=== PATIENT | female | born 1980 | race Caucasian/White ===

== ENCOUNTER 2017-05-09 09:41 | Emergency (ER) | payer SELFPAY ==
[~2017-05-09] VITALS: Ht 167.6 cm; Wt 108.9 kg
[2017-05-09 09:45] VITALS: BP 140/94
[2017-05-09] MEDS ORDERED: METOPROLOL (09:58)
== END 2017-05-09 11:21 | disposition left against medical advice (07) ==
LOC: ER 09:44
DX: K08.89 Other specified disorders of teeth and supporting structures (principal); F17.200 Nicotine dependence, unspecified, uncomplicated
CPT/HCPCS: 99282

== ENCOUNTER 2017-07-12 11:45 | Emergency (ER) | payer MEDICAID, OTHER ==
[~2017-07-12] VITALS: Ht 167.6 cm; Wt 104.3 kg
[~2017-07-12 11:45] MED LIST: METOPROLOL
--- NOTE | 2017-07-12 12:10 | ED Integumentary General ---
General Chief Complaint: Skin/Wound Problems Stated Complaint: STOMACH PAIN,POSS ABSCESS ON STOMACH Nursing Triage Note: ARRIVED VIA AMB TO ROOM 05 BY RAISA. PT STATES SHE HAS HAD SHINGLES LAST MONTH THAT WAS TREATED BUT NOW HAS BURNING RIGHT CHEST WALL WITH NO RASH. ALSO STATES SHE HAS A ABSCESS UNDER RIGHT BREAST. Source: patient Exam Limitations: no limitations History of Present Illness Date Seen by Provider: Jul 12, 2017 Time Seen by Provider: 12:05 Initial Comments ER with reports of right chest wall burning sensation that he the bump beneath the right breast. About 1 month ago patient was treated for shingles to the right lateral chest wall. He states that she received 2 courses of Valtrex and the rash ultimately went away. The pain also went away. This morning she notices herself to be very tender and sensitive over the right chest wall in the same region the shingles were. However, she does not have a rash. She does have a bump beneath the right breast which occasionally drains and has been present for a long time. She has a history of hidradenitis suppurativa Timing/Duration: this morning Severity: moderate Associated Symptoms: No fever Allergies and Home Medications Allergies Coded Allergies: Penicillins (Verified Allergy, Unknown, 05/09/17) cyclobenzaprine (Verified Allergy, Unknown, 05/09/17) ketorolac (Verified Allergy, Unknown, 05/09/17) latex (Verified Allergy, Unknown, 05/09/17) naproxen (Verified Allergy, Unknown, 05/09/17) Constitutional: see HPI, No chills, No fever EENTM: see HPI Respiratory: no symptoms reported Cardiovascular: no symptoms reported Genitourinary: no symptoms reported Musculoskeletal: see HPI Skin: see HPI Psychiatric/Neurological: No Symptoms Reported Endocrine: No Symptoms Reported Past Sbpmxki-Mkldzb-Bgdpcw Hx Patient Social History Alcohol Use: Denies Use Recreational Drug Use: No Smoking Status: Current Everyday Smoker Recent Foreign Travel: No Contact w/Someone Who Travel: No Recent Infectious Disease Expo: No Surgeries History of Surgeries: Yes Surgeries: Tonsillectomy Neurological History of Neurological Disord: No Genitourinary History of Genitourinary Disor: No Gastrointestinal History of Gastrointestinal Di: No Musculoskeletal History of Musculoskeletal Dis: No Endocrine History of Endocrine Disorders: No HEENT History of HEENT Disorders: No Cancer History of Cancer: No Psychosocial History of Psychiatric Problem: No Integumentary History of Skin or Integumenta: Yes (HYDRADENITIS SUPPRATIVA) Physical Exam Vital Signs Vital Signs - First Documented 07/12/17 11:45 Temp 98.0 Pulse 105 Resp 18 B/P (MAP) 141/103 (116) Pulse Ox 98 Capillary Refill : Less Than 3 Seconds General Appearance: WD/WN, no apparent distress HEENT: PERRL/EOMI, normal ENT inspection Neck: non-tender, full range of motion Cardiovascular: normal peripheral pulses, no murmur Respiratory: normal breath sounds, no respiratory distress, no accessory muscle use Gastrointestinal: normal bowel sounds, non tender Neurologic/Psychiatric: alert, normal mood/affect, oriented x 3 Skin: normal color, warm/dry Skin Problem Character: abscess, other (there is a 1 cm abscess to the medial aspect of the fold beneath the right breast. Her right chest wall is sensitive to touch but there is no rash or suggestion of shingles at this time.) I&D : Blade Size: 11 Progress Lesion beneath the right breast was cleaned with alcohol swab, anesthetized with 0.75 mL of 2% lidocaine without epinephrine. Small incision was made with an 11 blade scalpel. Purulent material was expressed. Culture collected and sent to lab. Covered with gauze. Progress/Results/Core Measures Results/Orders Vital Signs/I&O Vital Sign - Last 12Hours 07/12/17 11:45 Temp 98.0 Pulse 105 Resp 18 B/P (MAP) 141/103 (116) Pulse Ox 98 Blood Pressure Mean: 116 Departure Communication (Admissions) Progress Notes I will place the patient on Bactrim for the abscess, hydrocodone for pain, we will restart Valtrex as this hypersensitivity of the right chest wall may be followed by development of herpes zoster rash. Patient normally uses a pharmacy in [facility] but does not believe them to be open today she would like me to send her antibiotics and Valtrex to the [facility] pharmacy across the street from the hospital. Impression Impression: Primary Impression: Abscess Additional Impression: chest wall hyperesthesia Disposition: 01 HOME, SELF-CARE Condition: Stable Departure-Patient Inst. Decision time for Depature: 12:09 Referrals: GAIL KEMP PACKAGE CAR DRIVER (PCP/Family) Primary Care Physician Patient Instructions: Abscess Incision and Drainage (DC) Add. Discharge Instructions: 1. Allow the abscess to drain. Keep it covered with gauze to collect the drainage. Return to ER for any worsening pain or fevers. Take the Valtrex as directed for the chest wall sensitivity as the sensitivity sometimes makes in appearance a few days before the rash does and this may indicate a recurrence of the shingles. Take the antibiotics as directed for the abscess. All discharge instructions reviewed with patient and/or family. Voiced understanding. Scripts Valacyclovir HCl (Valtrex) 1,000 Mg Tablet 1000 MG PO TID, #21 TAB Prov: RAISA ARROYO APRN 07/12/17 Hydrocodone/Acetaminophen (Aline 5-325 Tablet) 1 Each Tablet 1 EACH PO Q4H Y for PAIN-SEVERE, #10 TAB Do not fill unless Valtrex and Bactrim are also filled Prov: RAISA ARROYO APRN 07/12/17 Sulfamethoxazole/Trimethoprim (Bactrim Ds Tablet) 1 Each Tablet 1 EACH PO BID, #14 TAB Prov: RAISA ARROYO APRN 07/12/17 RAISA ARROYO APRN Jul 12, 2017 12:10
[2017-07-12] MEDS ORDERED: VALA10004 PO (12:11)
[2017-07-12] MEDS ORDERED: SULF1TAB35 PO (12:11)
[2017-07-12] MEDS ORDERED: HYDR-757 PO (12:11)
[2017-07-12 12:21] VITALS: BP 141/103
[2017-07-12] MEDS ORDERED: FLUC150T PO (12:24)
== END 2017-07-12 12:21 | disposition home or self-care (01) ==
LOC: EDUNIT# 11:45 → ER 11:47
DX: R20.3 Hyperesthesia (principal); N61.1 Abscess of the breast and nipple; F17.200 Nicotine dependence, unspecified, uncomplicated; Z88.0 Allergy status to penicillin; Z91.040 Latex allergy status; Z88.8 Allergy status to other drugs, medicaments and biological substances; Z88.6 Allergy status to analgesic agent
CPT/HCPCS: 10060; 87070; 87205

== ENCOUNTER 2017-08-16 16:16 | Emergency (ER) | payer MEDICAID ==
[~2017-08-16] VITALS: Ht 167.6 cm; Wt 104.3 kg
[~2017-08-16 16:16] MED LIST changes: +FLUC150T PO; +HYDR-757 PO; +SULF1TAB35 PO; +VALA10004 PO
[2017-08-16] MEDS ORDERED: HYDR-3812 PO (17:15)
[2017-08-16] MEDS ORDERED: GABA-488 PO (17:15)
[2017-08-16] MEDS ORDERED: LIDOCAINE 2% VISCOUS 15 ML UDC PO ONE ×2 (17:15)
--- NOTE | 2017-08-16 17:18 | ED General ---
General Chief Complaint: Skin/Wound Problems Stated Complaint: STOMACH PAIN/REDNESS Nursing Triage Note: patient reports a 'tumor' on her chest and R breast that is to be surgically removed on Friday in [place], [place]. patient reports is in town visiting [facility] and the 'area' began to get puffy and have drainage today Nursing Sepsis Screen: No Definite Risk Source of Information: Patient, Old Records Exam Limitations: No Limitations History of Present Illness Date Seen by Provider: Aug 16, 2017 Time Seen by Provider: 16:34 Initial Comments This 36-year-old woman who presents to the emergency room with complaints of pain and skin rash at the medial left breast. She has been struggling with recurrent problems in this area for 3 months. This was originally thought to be abscess and infection. However, she has been on antibiotics including Bactrim and clindamycin without resolution. Pain became severely exacerbated about 3 days ago. She then developed a vesicular rash followed by an open sore in this area with some lightly purulent drainage. The area is exquisitely tender even to light touch. Patient is scheduled to have surgery for excision of this tissue on Friday. She has a history of hidradenitis suppurativa requiring surgery in the bilateral axilla. At one point it was thought that the rash in this area could be shingles and she was treated with acyclovir. She reports stopping the acyclovir after only a few days and she is therefore uncertain if the acyclovir helped. Allergies and Home Medications Allergies Coded Allergies: Penicillins (Verified Allergy, Unknown, 05/09/17) cyclobenzaprine (Verified Allergy, Unknown, 05/09/17) ketorolac (Verified Allergy, Unknown, 05/09/17) latex (Verified Allergy, Unknown, 05/09/17) naproxen (Verified Allergy, Unknown, 05/09/17) Home Medications Fluconazole 150 Mg Tablet, 150 MG PO DAILY Prescribed by: RAISA ARROYO on 07/12/17 1224 Gabapentin 300 Mg Capsule, 300 MG PO TID PRN for PAIN-MODERATE TO SEVERE Prescribed by: LYNDSEY HELMS on 08/16/17 1715 Hydrocodone/Acetaminophen 1 Each Tablet, 1 EACH PO Q4H PRN for PAIN-SEVERE Do not fill unless Valtrex and Bactrim are also filled Prescribed by: RAISA ARROYO on 07/12/17 1211 Hydrocodone/Acetaminophen 1 Each Tablet, 1 EACH PO Q4H PRN for PAIN-MODERATE TO SEVERE Prescribed by: LYNDSEY HELMS on 08/16/17 1715 Sulfamethoxazole/Trimethoprim 1 Each Tablet, 1 EACH PO BID Prescribed by: RAISA ARROYO on 07/12/17 1211 Valacyclovir HCl 1,000 Mg Tablet, 1,000 MG PO TID Prescribed by: RAISA ARROYO on 07/12/17 1211 Patient Home Medication List Home Medication List Reviewed: Yes Constitutional: no symptoms reported EENTM: no symptoms reported Respiratory: no symptoms reported Cardiovascular: no symptoms reported Gastrointestinal: no symptoms reported Genitourinary: no symptoms reported Musculoskeletal: no symptoms reported Skin: see HPI Psychiatric/Neurological: No Symptoms Reported Hematologic/Lymphatic: No Symptoms Reported Immunological/Allergic: no symptoms reported Past Nddclhk-Vtqdfq-Qfqivc Hx Patient Social History Alcohol Use: Denies Use Recreational Drug Use: No Smoking Status: Current Everyday Smoker Recent Foreign Travel: No Contact w/Someone Who Travel: No Recent Infectious Disease Expo: No Surgeries History of Surgeries: Yes (surgery on the bilateral axilla for hidradenitis suppurativa) Surgeries: Adenoidectomy, Tonsillectomy Respiratory History of Respiratory Disorde: No Cardiovascular History of Cardiac Disorders: Yes Cardiac Disorders: Hypertension Neurological History of Neurological Disord: No Reproductive System : No Genitourinary History of Genitourinary Disor: No Gastrointestinal History of Gastrointestinal Di: No Musculoskeletal History of Musculoskeletal Dis: No Endocrine History of Endocrine Disorders: No HEENT History of HEENT Disorders: No Cancer History of Cancer: No Psychosocial History of Psychiatric Problem: No Integumentary History of Skin or Integumenta: Yes (HYDRADENITIS SUPPURATIVA) Physical Exam Vital Signs Vital Signs - First Documented 08/16/17 16:24 Temp 97.7 Pulse 77 Resp 18 B/P (MAP) 137/91 (106) Pulse Ox 98 Capillary Refill : Less Than 3 Seconds General Appearance: No Apparent Distress, WD/WN HEENT: PERRL/EOMI, Normal ENT Inspection Respiratory: Lungs Clear, Normal Breath Sounds Cardiovascular: Regular Rate, Rhythm, No Edema, No Murmur Extremity: Normal Inspection Neurologic/Psychiatric: Alert, Oriented x3, No Motor/Sensory Deficits, Normal 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 There is a central tiny ulcerative type lesion. There is no palpable fluid collection or mass beneath the skin.) Progress/Results/Core Measures Suspected Sepsis Recent Fever Within 48 Hours: No Infection Criteria Present: None New/Unexplained Altered Menta: No Sepsis Screen: No Definite Risk Sepsis Diagnosis: SIRS Temperature:97.7 Pulse: 77 Respiratory Rate: 18 Blood Pressure 137 /91 Mean: 106 Results/Orders My Orders Orders - LYNDSEY RESENDEZ MD Lidocaine 2% Viscous 15 Ml (Xylocaine Vi (08/16/17 17:15) Lidocaine 2% Viscous 15 Ml (Xylocaine Vi (08/16/17 17:15) Wound Culture (08/16/17 17:19) Vital Signs/I&O Capillary Refill : Less Than 3 Seconds Blood Pressure Mean: 106 Progress Note : Progress Note Patient's clinical history and exam is suggestive of shingles. I advised her to restart her acyclovir of which she has a large supply at home. I dispensed some viscous lidocaine for her to use topically and prescribed hydrocodone and gabapentin for pain. I advised her to contact her surgeon on Friday to discuss possibly delaying surgery until she can determine if treatment of shingles improves her symptoms. Culture was obtained from the drainage of the central lesion. Prior culture was reviewed which showed typical skin edil. Patient was advised to continue her antibiotics until instructed otherwise. Departure Impression Impression: Primary Impression: Skin rash Disposition: 01 HOME, SELF-CARE Condition: Improved Departure-Patient Inst. Decision time for Depature: 17:13 Referrals: GAIL KEMP SCRAP COLLECTOR (PCP/Family) Primary Care Physician Patient Instructions: Shingles Add. Discharge Instructions: Resume acyclovir today. Continue with Bactrim DS and clindamycin as previously prescribed. You may use the lidocaine jelly provided in the ER by placing a thin layer over the affected areas every couple of hours as needed. First-line therapy for your pain should be the lidocaine jelly and over-the- counter Tylenol (acetaminophen) and/or ibuprofen. For pain not controlled by these medications, you may use gabapentin and/or hydrocodone as prescribed. Please be aware of these medications may make you drowsy. Do not drive, operate machinery, or make important decisions while on these medications. Contact your surgeon Friday morning to discuss your status. You may wish to delay surgery until progress on acyclovir can be monitored. A culture was obtained from your wound. Please follow-up on the culture in 2 or 3 days by contacting your primary care provider or surgeon. Return to the emergency room if symptoms are worsening. All discharge instructions reviewed with patient and/or family. Voiced understanding. Scripts Gabapentin (Gabapentin) 300 Mg Capsule 300 MG PO TID Y for PAIN-MODERATE TO SEVERE, #20 CAP Prov: LYNDSEY RESENDEZ MD 08/16/17 Hydrocodone/Acetaminophen (Hydrocodone-Acetamin 5-325 mg) 1 Each Tablet 1 EACH PO Q4H Y for PAIN-MODERATE TO SEVERE, #20 TAB Prov: LYNDSEY RESENDEZ MD 08/16/17 LYNDSEY RESENDEZ MD Aug 16, 2017 17:18
[2017-08-16 17:32] VITALS: BP 137/91
== END 2017-08-16 17:32 | disposition home or self-care (01) ==
LOC: EDUNIT# 16:16 → ER 16:18
DX: R21 Rash and other nonspecific skin eruption (principal); I10 Essential (primary) hypertension; F17.200 Nicotine dependence, unspecified, uncomplicated; Z90.89 Acquired absence of other organs; Z88.0 Allergy status to penicillin; Z88.1 Allergy status to other antibiotic agents; Z88.6 Allergy status to analgesic agent; Z91.040 Latex allergy status
CPT/HCPCS: 87070; 87205; 99283

== ENCOUNTER 2017-09-30 10:55 | Emergency (ER) | payer MEDICAID ==
[~2017-09-30] VITALS: Ht 167.6 cm; Wt 104.3 kg
[~2017-09-30 10:55] MED LIST changes: +GABA-488 PO; +HYDR-3812 PO
[2017-09-30] MEDS ORDERED: TRAM50TA2 (11:32)
[2017-09-30] MEDS ORDERED: METO50TA15 (11:32)
--- NOTE | 2017-09-30 12:01 | ED Integumentary General ---
General Chief Complaint: Skin/Wound Problems Stated Complaint: POST OP WOUND POSS INF RT BREAST Nursing Triage Note: ARRIVED VIA AMBULATORY TO ROOM 09 WITHOUT DIFFICULTY. STATES SHE HAD A TUMOR REMOVED FROM RIGHT BREAST ON August. STATES IT IS HEALING BECAUSE IT IS NOT DEEP BUT IT HAS A ODOR AND NOW IS HAVING GREEN DRAINAGE AND IT WAS YELLOW. Source: patient Exam Limitations: no limitations History of Present Illness Date Seen by Provider: September 30, 2017 Time Seen by Provider: 12:40 Initial Comments 36 YO FEMALE PATIENT PRESENTS TO THE ED WITH C/O PAIN AROUND THE RT BREAST EXCISIONAL BX SITE. PATIENT REPORTS HAVING A BENIGN TUMOR REMOVED FROM THE RT BREAST ON August AND WAS HEALING NICELY UNTIL YESTERDAY. YESTERDAY THE PATIENT NOTICED AN ODOR AND GREEN-YELLOWISH DISCHARGE TODAY. DENIES FEVER OR CHILLS. PATIENT REPORTS HAVING AN APPOINTMENT WITH HER SURGEON ON FRIDAY. Timing/Duration: yesterday, getting worse Modifying Factors: worse with other (WORSE WITH PALPATION) Allergies and Home Medications Allergies Coded Allergies: Penicillins (Verified Allergy, Unknown, 05/09/17) cyclobenzaprine (Verified Allergy, Unknown, 05/09/17) ketorolac (Verified Allergy, Unknown, 05/09/17) latex (Verified Allergy, Unknown, 05/09/17) naproxen (Verified Allergy, Unknown, 05/09/17) Home Medications Sulfamethoxazole/Trimethoprim 1 Each Tablet, 1 EACH PO BID Prescribed by: JOSE ANDRES on 09/30/17 4658 Patient Home Medication List Home Medication List Reviewed: Yes Constitutional: chills; No fever, No malaise Respiratory: no symptoms reported Cardiovascular: no symptoms reported Gastrointestinal: no symptoms reported Musculoskeletal: no symptoms reported Skin: see HPI Psychiatric/Neurological: No Symptoms Reported All Other Systems Reviewed Negative Unless Noted: Yes (Negative excepted noted.) Past Mnnxmax-Pywowj-Nmlqge Hx Patient Social History Alcohol Use: Denies Use Recreational Drug Use: No Smoking Status: Current Everyday Smoker Recent Foreign Travel: No Contact w/Someone Who Travel: No Recent Infectious Disease Expo: No Past Medical History Surgeries: Yes (surgery on the bilateral axilla for hidradenitis suppurativa. ) Adenoidectomy, Breast (EXCISIONAL BX OF THE RT BREAST ON 09/04/17), Tonsillectomy Respiratory: No Cardiac: Yes Hypertension Neurological: No Genitourinary: No Gastrointestinal: No Musculoskeletal: No Endocrine: No HEENT: No Cancer: No Psychosocial: No Integumentary: Yes (HYDRADENITIS SUPPURATIVA) Family Medical History Reviewed Nursing Family Hx No Pertinent Family Hx Physical Exam Vital Signs Vital Signs - First Documented 09/30/17 11:10 Temp 99.1 Pulse 96 Resp 18 B/P (MAP) 135/93 (107) Pulse Ox 97 O2 Delivery Room Air Capillary Refill : Less Than 3 Seconds General Appearance: WD/WN, no apparent distress HEENT: PERRL/EOMI, pharynx normal Neck: supple, normal inspection Cardiovascular: normal peripheral pulses, regular rate, rhythm, no edema, no murmur Respiratory: lungs clear, normal breath sounds, no respiratory distress, no accessory muscle use Extremities: no pedal edema, no calf tenderness, normal capillary refill Neurologic/Psychiatric: alert, normal mood/affect, oriented x 3 Skin: normal color, warm/dry, other (2.5X3 CM WOUND OF THE LEFT MEDIAL INFERIOR BREAST WITH GRANULATION OF THE WOUND BED. NO EVIDENCE OF ERYTHEMA, WARMTH, ESCHAR, OR ACTIVE DRAINAGE NOTED. GREENISH YELLOW DRAINAGE NOTED ON THE GAUZE. CULTURE OBTAINED OF THE WOUND BED. MACULOPAPULAR RASH WITH SCATTERED SCABS CONSISTENT WITH LOCAL REACTION SECONDARY TO THE TAPE NOTED SURROUNDING THE WOUND.) Skin Problem Location: other (RIGHT BREAST) Skin Problem Character: tenderness, other (2.5X3 CM WOUND OF THE LEFT MEDIAL INFERIOR BREAST WITH GRANULATION OF THE WOUND BED. NO EVIDENCE OF ERYTHEMA, WARMTH, ESCHAR, OR ACTIVE DRAINAGE NOTED. GREENISH YELLOW DRAINAGE NOTED ON THE GAUZE. CULTURE OBTAINED OF THE WOUND BED. MACULOPAPULAR RASH WITH SCATTERED SCABS CONSISTENT WITH LOCAL REACTION SECONDARY TO THE TAPE NOTED SURROUNDING THE WOUND.) Progress/Results/Core Measures Results/Orders Lab Results Laboratory Tests Test 09/30/17 13:21 Range/Units White Blood Count 12.1 H 4.3-11.0 10^3/uL Red Blood Count 4.81 4.35-5.85 10^6/uL Hemoglobin 13.3 11.5-16.0 G/DL Hematocrit 40 35-52 % Mean Corpuscular Volume 83 80-99 FL Mean Corpuscular Hemoglobin 28 25-34 PG Mean Corpuscular Hemoglobin Concent 33 32-36 G/DL Red Cell Distribution Width 14.8 H 10.0-14.5 % Platelet Count 427 H 130-400 10^3/uL Mean Platelet Volume 9.7 7.4-10.4 FL Neutrophils (%) (Auto) 70 42-75 % Lymphocytes (%) (Auto) 20 12-44 % Monocytes (%) (Auto) 7 0-12 % Eosinophils (%) (Auto) 3 0-10 % Basophils (%) (Auto) 0 0-10 % Neutrophils # (Auto) 8.5 H 1.8-7.8 X 10^3 Lymphocytes # (Auto) 2.4 1.0-4.0 X 10^3 Monocytes # (Auto) 0.9 0.0-1.0 X 10^3 Eosinophils # (Auto) 0.3 0.0-0.3 10^3/uL Basophils # (Auto) 0.0 0.0-0.1 10^3/uL Sodium Level 139 135-145 MMOL/L Potassium Level 4.6 3.6-5.0 MMOL/L Chloride Level 110 H 98-107 MMOL/L Carbon Dioxide Level 19 L 21-32 MMOL/L Anion Gap 10 5-14 MMOL/L Blood Urea Nitrogen 8 7-18 MG/DL Creatinine 0.66 0.60-1.30 MG/DL Estimat Glomerular Filtration Rate > 60 BUN/Creatinine Ratio 12 Glucose Level 93 70-105 MG/DL Calcium Level 9.8 8.5-10.1 MG/DL Total Bilirubin 0.2 0.1-1.0 MG/DL Aspartate Amino Transf (AST/SGOT) 16 5-34 U/L Alanine Aminotransferase (ALT/SGPT) 18 0-55 U/L Alkaline Phosphatase 69 40-136 U/L C-Reactive Protein High Sensitivity 1.00 H 0.00-0.50 MG/DL Total Protein 7.7 6.4-8.2 GM/DL Albumin 4.5 3.2-4.5 GM/DL My Orders Orders - JOSE ANDRES Cbc With Automated Diff (09/30/17 13:00) Comprehensive Metabolic Panel (09/30/17 13:00) Hs C Reactive Protein (09/30/17 13:00) Saline Lock/Iv-Start (09/30/17 13:00) Ns Iv 1000 Ml (Sodium Chloride 0.9%) (09/30/17 13:00) Morphine Injection (Morphine Injection (09/30/17 13:00) Wound Culture (09/30/17 13:00) Us Breast Limited Right (09/30/17 13:00) Medications Given in ED Current Medications Medications Dose Ordered Sig/Mary Route Start Time Stop Time Status Last Admin Dose Admin Sodium Chloride 1,000 ml @ 0 mls/hr Q0M ONCE IV 09/30/17 13:00 09/30/17 13:02 DC 09/30/17 13:19 1,000 MLS/HR Vital Signs/I&O 09/30/17 09/30/17 11:10 14:14 Temp 99.1 Pulse 96 77 Resp 18 18 B/P (MAP) 135/93 (107) 127/105 Pulse Ox 97 98 O2 Delivery Room Air Blood Pressure Mean: 107 Diagnostic Imaging Diagonstic Imaging: Ultrasound Plain Films/CT/US/NM/MRI: other (RT BREAST) Comments US BREAST LIMITED RIGHT INDICATION: A recent right breast lump removal with new soreness and lump at the area of prior surgery. Sonographic interrogation of the right breast 4 o'clock location was performed. No focal fluid collection or mass is detected. No sonographic abnormalities detected. IMPRESSION: BI-RADS 2 No sonographic abnormalities detected. Continued close clinical and self breast exam is recommended. If symptoms persist, diagnostic mammography may be indicated. ACR BI-RADS Category 2: Benign findings. Dictated on workstation # [id number] Reviewed: Reviewed by Me (RADIOLOGY REPORT REVIEWED BY ME) Departure Communication (Admissions) Laboratory and diagnostic findings discussed with the patient. Plan for discharge to home with follow-up as an outpatient with her surgeon this week as previously scheduled. Patient to continue using the tramadol for pain. Impression Primary Impression: Cellulitis of female breast Additional Impression: S/P breast biopsy, right Disposition: 01 HOME, SELF-CARE Condition: Improved Departure-Patient Inst. Decision time for Depature: 13:53 Referrals: NO,LOCAL PHYSICIAN (PCP/Family) Primary Care Physician Patient Instructions: Cellulitis (Skin Infection), Adult (DC) Add. Discharge Instructions: All discharge instructions reviewed with patient and/or family. Voiced understanding. MEDICATIONS DIRECTED. SHOWER WITH ANTIBACTERIAL SOAP. YOU MAY USE ICE PACKS OR WARM PACKS NEEDED FOR SYMPTOMS. WEAR A SPORTS BRA TO HOLD GAUZE IN PLACE. AVOID TAPING THE SKIN MUCH POSSIBLE. FOLLOW-UP WITH YOUR SURGEON THIS WEEK PREVIOUSLY SCHEDULED. RETURN TO THE EMERGENCY DEPARTMENT FOR WORSENED SYMPTOMS OR ANY OTHER CONCERNS. Scripts Sulfamethoxazole/Trimethoprim (Bactrim Ds Tablet) 1 Each Tablet 1 EACH PO BID, #14 TAB 0 Refills Prov: JOSE ANDRES 09/30/17 JOSE ANDRES September 30, 2017 12:01
[2017-09-30] MEDS ORDERED: morphine INJ 10 MG/ML 1ML (SYR OR VIAL) IVP STA (13:00)
[2017-09-30] MEDS ORDERED: NS IV 1000 ML 1,000 ML IV ONE (13:00)
[2017-09-30 13:26] LABS: BASOPHILS % (AUTO) 0 % (0-10); EOSINOPHILS # (AUTO) 0.3 10^3/uL (0.0-0.3); EOSINOPHILS % (AUTO) 3 % (0-10); HEMATOCRIT 40 % (35-52); HEMOGLOBIN 13.3 G/DL (11.5-16.0); LYMPHOCYTES # (AUTO) 2.4 X 10^3 (1.0-4.0); LYMPHOCYTES % (AUTO) 20 % (12-44); MEAN CORPUSCULAR HEMOGLOBIN 28 PG (25-34); MEAN CORPUSCULAR HGB CONC 33 G/DL (32-36); MEAN CORPUSCULAR VOLUME 83 FL (80-99); MEAN PLATELET VOLUME 9.7 FL (7.4-10.4); MONOCYTES # (AUTO) 0.9 X 10^3 (0.0-1.0); MONOCYTES % (AUTO) 7 % (0-12); NEUTROPHILS # (AUTO) 8.5 X 10^3 (1.8-7.8); NEUTROPHILS % (AUTO) 70 % (42-75); PLATELET COUNT 427 10^3/uL (130-400); RED BLOOD COUNT 4.81 10^6/uL (4.35-5.85); RED CELL DISTRIBUTION WIDTH 14.8 % (10.0-14.5); WHITE BLOOD COUNT 12.1 10^3/uL (4.3-11.0)
[2017-09-30 13:47] LABS: ALANINE AMINOTRANSFERASE 18 U/L (0-55); ALBUMIN 4.5 GM/DL (3.2-4.5); ALKALINE PHOSPHATASE 69 U/L (40-136); BILIRUBIN,TOTAL 0.2 MG/DL (0.1-1.0); BUN/CREATININE RATIO 12; CALCIUM 9.8 MG/DL (8.5-10.1); CARBON DIOXIDE 19 MMOL/L (21-32); CHLORIDE 110 MMOL/L (98-107); CREATININE SERUM 0.66 MG/DL (0.60-1.30); GFR ESTIMATED > 60; GLUCOSE 93 MG/DL (70-105); POTASSIUM 4.6 MMOL/L (3.6-5.0); SODIUM 139 MMOL/L (135-145); TOTAL PROTEIN 7.7 GM/DL (6.4-8.2)
--- NOTE | 2017-09-30 13:47 | Diagnostic Imaging Report ---
INDICATION: A recent right breast lump removal with new soreness and lump at the area of prior surgery. Sonographic interrogation of the right breast 4 o'clock location was performed. No focal fluid collection or mass is detected. No sonographic abnormalities detected. IMPRESSION: BI-RADS 2 No sonographic abnormalities detected. Continued close clinical and self breast exam is recommended. If symptoms persist, diagnostic mammography may be indicated. ACR BI-RADS Category 2: Benign findings. Dictated by: Dictated on workstation # [id number]
[2017-09-30] MEDS ORDERED: SULF1TAB35 PO (13:57)
[2017-09-30 14:14] VITALS: BP 127/105
== END 2017-09-30 14:14 | disposition home or self-care (01) ==
LOC: EDUNIT# 10:55 → ER 10:59
DX: N61.0 Mastitis without abscess (principal); I10 Essential (primary) hypertension; F17.200 Nicotine dependence, unspecified, uncomplicated; Z90.89 Acquired absence of other organs; Z88.0 Allergy status to penicillin; Z88.8 Allergy status to other drugs, medicaments and biological substances; Z98.890 Other specified postprocedural states
CPT/HCPCS: 36415; 80053; 85025; 86141; 87070; 87077; 87186; 87205; 96374

== ENCOUNTER 2017-12-13 19:35 | Emergency (ER) | payer MEDICAID ==
[~2017-12-13] VITALS: Ht 167.6 cm; Wt 104.3 kg
[~2017-12-13 19:35] MED LIST changes: +METO50TA15; +TRAM50TA2
--- NOTE | 2017-12-13 20:24 | ED Integumentary General ---
General Chief Complaint: Skin/Wound Problems Stated Complaint: RASH ON R SIDE OF BODY Nursing Triage Note: PT PRESENTS TO ER WITH COMPLAINT OF RASH THAT STARTS UNDER RIGHT BREAST AND GOES AROUND HER SIDE TO HER MEDIAL BACK. DOES NOT HAVE RASH OF LEFT SIDE. Source: patient Exam Limitations: no limitations History of Present Illness Date Seen by Provider: Dec 13, 2017 Time Seen by Provider: 20:22 Initial Comments to ER with reports of a rash. This began yesterday and is on the right side of the thorax. It began very itchy and is now very painful. She's never had this before. She did have chickenpox as a child. The rash does not cross midline. She was unable to shower today because the hot water hitting it was excruciating pain. She could not wear her brought to the ER because even light touch of the skin was very painful. Timing/Duration: yesterday Severity: moderate Associated Symptoms: rash Allergies and Home Medications Allergies Coded Allergies: Penicillins (Verified Allergy, Unknown, 05/09/17) cyclobenzaprine (Verified Allergy, Unknown, 05/09/17) ketorolac (Verified Allergy, Unknown, 05/09/17) latex (Verified Allergy, Unknown, 05/09/17) naproxen (Verified Allergy, Unknown, 05/09/17) Home Medications Sulfamethoxazole/Trimethoprim 1 Each Tablet, 1 EACH PO BID Prescribed by: JOSE ANDRES on 09/30/17 6553 Patient Home Medication List Home Medication List Reviewed: Yes Constitutional: see HPI; No chills, No fever EENTM: see HPI Respiratory: no symptoms reported Cardiovascular: no symptoms reported Genitourinary: no symptoms reported Musculoskeletal: no symptoms reported Skin: see HPI, rash Psychiatric/Neurological: No Symptoms Reported Past Sehzkvj-Anlvci-Ygqfog Hx Patient Social History Alcohol Use: Denies Use Recreational Drug Use: No Smoking Status: Current Everyday Smoker Recent Foreign Travel: No Contact w/Someone Who Travel: No Recent Infectious Disease Expo: No Immunizations Up To Date Tetanus Booster (TDap): Unknown PED Vaccines UTD: Yes Past Medical History Surgeries: Yes (surgery on the bilateral axilla for hidradenitis suppurativa. ) Adenoidectomy, Breast, Tonsillectomy Respiratory: No Cardiac: Yes Hypertension Neurological: No Genitourinary: No Gastrointestinal: No Musculoskeletal: No Endocrine: No HEENT: No Cancer: No Psychosocial: No Integumentary: Yes (HYDRADENITIS SUPPURATIVA) Family Medical History No Pertinent Family Hx Physical Exam Vital Signs Vital Signs - First Documented 12/13/17 20:00 Temp 98.0 Pulse 88 Resp 20 B/P (MAP) 132/76 (94) Pulse Ox 97 O2 Delivery Room Air Capillary Refill : Less Than 3 Seconds General Appearance: WD/WN, no apparent distress HEENT: PERRL/EOMI, normal ENT inspection Neck: non-tender, full range of motion Respiratory: no respiratory distress, no accessory muscle use Gastrointestinal: normal bowel sounds, non tender Neurologic/Psychiatric: alert, normal mood/affect, oriented x 3 Skin: normal color, warm/dry, other (there is an erythematous fine papular rash to the lateral and anterior aspect of the right side of the thorax. To the posterior right side of the thorax there are clusters of vesicles that are erythematous. This is consistent with herpes zoster rash. No evidence of secondary bacterial infection with cellulitis. Vesicles remain unruptured.) Skin Problem Character: other (the rash does not cross midline anteriorly or posteriorly. It terminates at the midline.) Progress/Results/Core Measures Results/Orders My Orders Orders - RAISA ARROYO APRN Rx-Hydrocodone/Apap 5-325 Mg (Rx-Vicodin (12/13/17 20:30) Acyclovir Capsule/Tablet (Zovirax Caps (12/13/17 21:00) Vital Signs/I&O 12/13/17 20:00 Temp 98.0 Pulse 88 Resp 20 B/P (MAP) 132/76 (94) Pulse Ox 97 O2 Delivery Room Air Blood Pressure Mean: 94 Departure Impression Primary Impression: Herpes zoster Disposition: 01 HOME, SELF-CARE Condition: Stable Departure-Patient Inst. Decision time for Depature: 20:25 Referrals: NO,LOCAL PHYSICIAN (PCP/Family) Primary Care Physician Patient Instructions: Shingles Add. Discharge Instructions: 1. There is no cream that is particularly helpful but if you want to use a cream , try calamine lotion. 2. Steroids pain medication and antivirals as directed. Do not take the Ultram while you're taking the hydrocodone. Take one or the other. Follow-up with your doctor next week for recheck. Return to ER for any concerns. Expect this to get worse before it gets better.All discharge instructions reviewed with patient and /or family. Voiced understanding. Scripts Acyclovir (Acyclovir) 800 Mg Tablet 800 MG PO 5XD, #35 TAB Prov: RAISA ARROYO APRN 12/13/17 Hydrocodone/Acetaminophen ([place] 5-325 Tablet) 1 Each Tablet 1-2 EACH PO Q6H PRN for PAIN-MODERATE TO SEVERE, #20 TAB Prov: RAISA ARROYO APRN 12/13/17 Prednisone (Prednisone) 10 Mg Tab 10 MG PO UD, #30 EA 60 mg daily for 3 days then reduce by one tablet daily until gone Prov: RAISA ARROYO APRN 12/13/17 RAISA ARROYO APRN Dec 13, 2017 20:24
[2017-12-13] MEDS ORDERED: HYDR-757 PO (20:30)
[2017-12-13] MEDS ORDERED: RX-HYDROCODONE/APAP 5/325 MG #4 TAB PK PO PRN (20:30)
[2017-12-13] MEDS ORDERED: ACYC800T PO (20:30)
[2017-12-13] MEDS ORDERED: PRD10T PO (20:30)
[2017-12-13 20:45] VITALS: BP 132/76
[2017-12-13] MEDS ORDERED: ACYCLOVIR 400 MG TABLET (ZOVIRAX) PO SCH (21:00)
== END 2017-12-13 20:45 | disposition home or self-care (01) ==
LOC: EDUNIT# 19:35 → ER 19:37
DX: B02.9 Zoster without complications (principal); I10 Essential (primary) hypertension; F17.200 Nicotine dependence, unspecified, uncomplicated; Z90.89 Acquired absence of other organs; Z88.0 Allergy status to penicillin; Z88.4 Allergy status to anesthetic agent; Z88.8 Allergy status to other drugs, medicaments and biological substances; Z91.040 Latex allergy status
CPT/HCPCS: 99283

== ENCOUNTER 2018-03-30 18:04 | Emergency (ER) | payer SELFPAY ==
[~2018-03-30] VITALS: Ht 167.6 cm; Wt 105.2 kg
[~2018-03-30 18:04] MED LIST changes: +ACYC800T PO; +HYDR-4226 PO; -HYDR-757 PO; +PRD10T PO
[2018-03-30] MEDS ORDERED: RX-HYDROCODONE/APAP 5/325 MG #4 TAB PK PO PRN (19:00)
[2018-03-30] MEDS ORDERED: HYDR-4226 PO (19:07)
--- NOTE | 2018-03-30 19:08 | ED Lower Extremity ---
General Chief Complaint: Lower Extremity Stated Complaint: FALL/L CALF PAIN Nursing Triage Note: left calf pain s/p fall Nursing Sepsis Screen: No Definite Risk Source: patient Exam Limitations: no limitations History of Present Illness Date Seen by Provider: Mar 30, 2018 Time Seen by Provider: 19:02 Initial Comments To ER per private vehicle with reports of left calf pain after a fall earlier today. She slipped on the ice felt a popping sensation in the posterior left calf and now has swelling and tenderness to this. The pain in the calf is much worse with plantar flexion of the foot. She is able to bear weight just fine however his long she doesn't plantar flex her foot. Onset: just prior to arrival Severity: moderate Pain/Injury Location: left other Modifying Factors: Worse With Movement Allergies and Home Medications Allergies Coded Allergies: Penicillins (Verified Allergy, Unknown, 05/09/17) cyclobenzaprine (Verified Allergy, Unknown, 05/09/17) ketorolac (Verified Allergy, Unknown, 05/09/17) latex (Verified Allergy, Unknown, 05/09/17) naproxen (Verified Allergy, Unknown, 05/09/17) Patient Home Medication List Home Medication List Reviewed: Yes Review of Systems Constitutional: see HPI EENTM: see HPI Respiratory: no symptoms reported Cardiovascular: no symptoms reported Genitourinary: no symptoms reported Musculoskeletal: see HPI Skin: no symptoms reported Psychiatric/Neurological: No Symptoms Reported Past Rfkxsja-Zdkefm-Mumrqv Hx Patient Social History Alcohol Use: Denies Use Recreational Drug Use: No Smoking Status: Current Someday Smoker Type Used: Cigarettes 2nd Hand Smoke Exposure: Yes Recent Foreign Travel: No Contact w/Someone Who Travel: No Recent Infectious Disease Expo: No Recent Hopitalizations: No Immunizations Up To Date Tetanus Booster (TDap): Unknown PED Vaccines UTD: Yes Seasonal Allergies Seasonal Allergies: No Past Medical History Surgeries: Yes (surgery on the bilateral axilla for hidradenitis suppurativa. ) Adenoidectomy, Breast, Tonsillectomy Respiratory: No Cardiac: Yes Hypertension Neurological: No : No Last Menstrual Period: Mar 06, 2018 Genitourinary: No Gastrointestinal: No Musculoskeletal: No Endocrine: No HEENT: No Cancer: No Psychosocial: No Integumentary: Yes (HYDRADENITIS SUPPURATIVA) Blood Disorders: No Family Medical History No Pertinent Family Hx Physical Exam Vital Signs Capillary Refill : Less Than 3 Seconds Height, Weight, BMI Height: 5'6.00" Weight: 232lbs. oz. 105.002419ak; BMI Method:Stated General Appearance: WD/WN, no apparent distress Respiratory: no respiratory distress, no accessory muscle use Gastrointestinal: soft Hips: bilateral hip non-tender, bilateral hip normal inspection Legs: left leg other (there is swelling to the mid left calf. There is no ecchymosis at this time but I suspect there will be later. When pain her foot off the bed I am able to squeeze the calf and this does result in plantar flexion of the foot. The Achilles tendon is intact and nontender.) Knees: bilateral knee non-tender, bilateral knee normal inspection, bilateral knee normal range of motion Ankles: bilateral ankle non-tender, bilateral ankle normal inspection, bilateral ankle normal range of motion Feet: bilateral foot non-tender, bilateral foot normal inspection, bilateral foot normal range of motion Neurologic/Psychiatric: alert, normal mood/affect, oriented x 3 Skin: normal color, warm/dry Strong dorsalis pedis pulses bilaterally Progress/Results/Core Measures Results/Orders My Orders Orders - RAISA ARROYO APRN Rx-Hydrocodone/Apap 5-325 Mg (Rx-Vicodin (03/30/18 19:00) Blood Pressure Mean: 99 Departure Communication (Admissions) We'll provide her with an Lionel wrap for the calf, a walking boot to prevent plantar or dorsiflexion of the foot. She has no pain with weightbearing, only with dorsiflexion and plantar flexion of the foot. Impression Primary Impression: Gastrocnemius tear Qualified Codes: S86.112A - Strain of other muscle(s) and tendon(s) of posterior muscle group at lower leg level, left leg, initial encounter Disposition: HOME, SELF-CARE Condition: Stable Departure-Patient Inst. Decision time for Depature: 19:05 Referrals: NO,LOCAL PHYSICIAN (PCP/Family) Primary Care Physician Patient Instructions: Lower Extremity Muscle Strain Add. Discharge Instructions: 1. Go home and put an ice pack on the back of your at one hour intervals for the next 2-3 days. Take pain medication as directed. You may add ibuprofen to this prescribed pain medication. Wear the walking boot when you are up and about for about 2 weeks. You can take it off when at rest and not walking. Wear the Lionel wrap around the calf for the next week. You may take off to shower. Follow-up with your doctor within 1-2 weeks for recheck. Elevate this leg as much as possible for the next 1-2 days. All discharge instructions reviewed with patient and/or family. Voiced understanding. Scripts Hydrocodone/Acetaminophen ([place] 5-325 Tablet) 1 Each Tablet 1 EACH PO Q6H PRN for PAIN-MODERATE MDD 10, #14 TAB Prov: RAISA ARROYO APRN 03/30/18 RAISA ARROYO APRN Mar 30, 2018 19:08
[2018-03-30 19:13] VITALS: BP 114/92
== END 2018-03-30 19:13 | disposition home or self-care (01) ==
LOC: EDUNIT# 18:04 → ER 18:05
DX: S86.112A Strain of other muscle(s) and tendon(s) of posterior muscle group at lower leg level, left leg, initial encounter (principal); I10 Essential (primary) hypertension; F17.210 Nicotine dependence, cigarettes, uncomplicated; Z88.0 Allergy status to penicillin; Z90.89 Acquired absence of other organs; Z88.1 Allergy status to other antibiotic agents; Z88.4 Allergy status to anesthetic agent; Z91.040 Latex allergy status; Z88.8 Allergy status to other drugs, medicaments and biological substances; X50.0XXA Overexertion from strenuous movement or load, initial encounter
CPT/HCPCS: 99283

== ENCOUNTER 2018-04-13 14:26 | Emergency (ER) | payer SELFPAY ==
[~2018-04-13] VITALS: Ht 167.6 cm; Wt 105.2 kg
[2018-04-13] MEDS ORDERED: PRD20T PO (15:00)
[2018-04-13] MEDS ORDERED: TRAM-42 PO (15:00)
--- NOTE | 2018-04-13 15:00 | ED Integumentary General ---
General Chief Complaint: Skin/Wound Problems Stated Complaint: RASH;BLISTERS;BURNING PAIN Nursing Triage Note: PT STATES HX OF GETTING SHINGLES EVERY YEAR ABOUT THIS TIME. BURNING RASH ON RT SIDE. Source: patient Exam Limitations: no limitations History of Present Illness Date Seen by Provider: Apr 13, 2018 Time Seen by Provider: 14:56 Initial Comments To ER with reports of a painful red rash on the right side of her chest wall. She's had shingles before and suspects that to be the case again. The rash and pain began this morning. She does have acyclovir left over at home and she actually has this with her. This is 800 mg 5 times daily and she has a sufficient supply. She has been taking hydrocodone for a muscle tear but states that it makes her nauseous, she would like to try plain Ultram. Timing/Duration: this morning Severity: moderate Location: torso Allergies and Home Medications Allergies Coded Allergies: Penicillins (Verified Allergy, Unknown, 05/09/17) cyclobenzaprine (Verified Allergy, Unknown, 05/09/17) ketorolac (Verified Allergy, Unknown, 05/09/17) latex (Verified Allergy, Unknown, 05/09/17) naproxen (Verified Allergy, Unknown, 05/09/17) Home Medications Hydrocodone/Acetaminophen 1 Each Tablet, 1 EACH PO Q6H PRN for PAIN-MODERATE Prescribed by: RAISA ARROYO on 03/30/18 168 Patient Home Medication List Home Medication List Reviewed: Yes Review of Systems Review of Systems Constitutional: see HPI EENTM: see HPI Respiratory: no symptoms reported Cardiovascular: no symptoms reported Genitourinary: no symptoms reported Musculoskeletal: no symptoms reported Skin: see HPI Psychiatric/Neurological: No Symptoms Reported Past Yerzybz-Mbkico-Sogqlu Hx Patient Social History Alcohol Use: Denies Use Recreational Drug Use: No Smoking Status: Current Everyday Smoker Type Used: Cigarettes 2nd Hand Smoke Exposure: Yes Recent Foreign Travel: No Contact w/Someone Who Travel: No Recent Infectious Disease Expo: No Recent Hopitalizations: No Immunizations Up To Date Tetanus Booster (TDap): Unknown PED Vaccines UTD: Yes Seasonal Allergies Seasonal Allergies: No Past Medical History Surgeries: Yes (surgery on the bilateral axilla for hidradenitis suppurativa. ) Adenoidectomy, Breast, Tonsillectomy Respiratory: No Cardiac: Yes Hypertension Neurological: No : No Last Menstrual Period: Mar 29, 2018 Genitourinary: No Gastrointestinal: No Musculoskeletal: No Endocrine: No HEENT: No Cancer: No Psychosocial: No Integumentary: Yes (HYDRADENITIS SUPPURATIVA) Blood Disorders: No Family Medical History No Pertinent Family Hx Physical Exam Vital Signs Vital Signs - First Documented 04/13/18 14:44 Temp 99.3 Pulse 90 Resp 20 B/P (MAP) 137/92 (107) Pulse Ox 98 O2 Delivery Room Air Capillary Refill : Less Than 3 Seconds General Appearance: WD/WN, no apparent distress Respiratory: no respiratory distress, no accessory muscle use Gastrointestinal: normal bowel sounds, non tender Neurologic/Psychiatric: alert, normal mood/affect, oriented x 3 Skin: normal color, warm/dry, other (erythematous papules along the right side of the thorax that does not cross midline in the front or back. No vesicles at this time. Tender to even light palpation.) Progress/Results/Core Measures Results/Orders Vital Signs/I&O 04/13/18 14:44 Temp 99.3 Pulse 90 Resp 20 B/P (MAP) 137/92 (107) Pulse Ox 98 O2 Delivery Room Air Blood Pressure Mean: 107 Departure Impression Primary Impression: Herpes zoster Qualified Codes: B02.9 - Zoster without complications Disposition: 01 HOME, SELF-CARE Condition: Stable Departure-Patient Inst. Decision time for Depature: 14:58 Referrals: NO,LOCAL PHYSICIAN (PCP/Family) Primary Care Physician Patient Instructions: Shingles Add. Discharge Instructions: 1. Prednisone as directed 2. Ultram as directed 3. Restart your acyclovir today as directed. All discharge instructions reviewed with patient and/or family. Voiced understanding. Scripts Prednisone (Prednisone) 20 Mg Tab 40 MG PO DAILY, #10 TAB Prov: RAISA ARROYO [employer] 04/13/18 Tramadol HCl (Ultram) 50 Mg Tablet 50 MG PO Q6H PRN for PAIN-MODERATE, #30 TAB Prov: RAISA ARROYO APRN 04/13/18 Work/School Note: Work Release Form Date Seen in the Emergency Department: Apr 13, 2018 Return to Work: Apr 15, 2018 RAISA ARROYO APRN Apr 13, 2018 15:00
[2018-04-13 15:16] VITALS: BP 137/92
== END 2018-04-13 15:16 | disposition home or self-care (01) ==
LOC: EDUNIT# 14:26 → ER 14:27
DX: B02.9 Zoster without complications (principal); I10 Essential (primary) hypertension; F17.210 Nicotine dependence, cigarettes, uncomplicated; Z90.89 Acquired absence of other organs; Z88.0 Allergy status to penicillin; Z88.4 Allergy status to anesthetic agent; Z91.040 Latex allergy status; Z88.8 Allergy status to other drugs, medicaments and biological substances
CPT/HCPCS: 99282

== ENCOUNTER 2018-06-20 12:04 | Emergency (ER) | payer SELFPAY ==
[~2018-06-20] VITALS: Ht 167.6 cm; Wt 104.3 kg
[~2018-06-20 12:04] MED LIST changes: +PRD20T PO; +TRAM-42 PO
--- NOTE | 2018-06-20 12:22 | ED Integumentary General ---
General Stated Complaint: DX WITH SHINGLES ON FACE/EYE PAIN Source: patient Exam Limitations: no limitations History of Present Illness Date Seen by Provider: Jun 20, 2018 Time Seen by Provider: 12:16 Initial Comments To ER with reports of right-sided facial pain. She states that she was diagnosed with shingles. She's been here several times with reports of shingles at various locations. She states that she saw a doctor last week and is currently on prednisone, acyclovir, Ultram that the Ultram is not working. She has an appointment with her doctor on Friday. She reports pain to the right side of the face and tearing from the right eye. Timing/Duration: just prior to arrival Severity: moderate Location: face Associated Symptoms: denies symptoms Allergies and Home Medications Allergies Coded Allergies: Penicillins (Verified Allergy, Unknown, 05/09/17) cyclobenzaprine (Verified Allergy, Unknown, 05/09/17) ketorolac (Verified Allergy, Unknown, 05/09/17) latex (Verified Allergy, Unknown, 05/09/17) naproxen (Verified Allergy, Unknown, 05/09/17) Home Medications Carbamazepine 100 Mg Tab, 100 MG PO BID Prescribed by: RAISA ARROYO on 06/20/18 1223 Hydrocodone/Acetaminophen 1 Each Tablet, 1 EACH PO Q6H PRN for PAIN-MODERATE Prescribed by: RAISA ARROYO on 03/30/18 1907 Prednisone 20 Mg Tab, 40 MG PO DAILY Prescribed by: RAISA ARROYO on 04/13/18 1500 Tramadol HCl 50 Mg Tablet, 50 MG PO Q6H PRN for PAIN-MODERATE Prescribed by: RAISA ARROYO on 04/13/18 1500 Patient Home Medication List Home Medication List Reviewed: Yes Review of Systems Review of Systems Constitutional: see HPI EENTM: tearing; No blurred vision, No eye pain Respiratory: no symptoms reported Cardiovascular: no symptoms reported Genitourinary: no symptoms reported Musculoskeletal: no symptoms reported Skin: no symptoms reported Psychiatric/Neurological: No Symptoms Reported Past Ydjlzda-Yiycke-Fdtdza Hx Patient Social History Type Used: Cigarettes 2nd Hand Smoke Exposure: Yes Recent Foreign Travel: No Contact w/Someone Who Travel: No Recent Hopitalizations: No Immunizations Up To Date Tetanus Booster (TDap): Unknown PED Vaccines UTD: Yes Seasonal Allergies Seasonal Allergies: No Past Medical History Surgeries: Yes (surgery on the bilateral axilla for hidradenitis suppurativa. ) Adenoidectomy, Breast, Tonsillectomy Respiratory: No Cardiac: Yes Hypertension Neurological: No Genitourinary: No Gastrointestinal: No Musculoskeletal: No Endocrine: No HEENT: No Cancer: No Psychosocial: No Integumentary: Yes (HYDRADENITIS SUPPURATIVA) Blood Disorders: No Family Medical History No Pertinent Family Hx Physical Exam Vital Signs Vital Signs - First Documented 06/20/18 12:17 Temp 97.2 Pulse 84 Resp 16 B/P (MAP) 145/95 (112) Pulse Ox 94 Capillary Refill : General Appearance: WD/WN, no apparent distress HEENT: PERRL/EOMI, normal ENT inspection, TMs normal, other (there is no papular or vesicular rash to the right side of the face that would be consistent with herpes zoster infection. There is no tearing of the right eye. There is no erythema any part of the face.) Respiratory: no respiratory distress, no accessory muscle use Neurologic/Psychiatric: alert, normal mood/affect Skin: normal color, warm/dry Skin Problem Location: face Progress/Results/Core Measures Results/Orders Vital Signs/I&O 06/20/18 06/20/18 12:17 12:34 Temp 97.2 Pulse 84 87 Resp 16 18 B/P (MAP) 145/95 (112) 130/80 (97) Pulse Ox 94 98 Departure Communication (Admissions) She reports a history of shingles but I do not see anything on my exam that would suggest that she has an active infection other than her reported pain. She states that the Ultram is not working and she would like something stronger for pain. [facility] report has her listed with the Last Name spelled MARCUS which is contrary to the name that we have listed here. However she assures me that the name given here is her correct name. Within the past year she's had opiates written out a variety of locations in [place] and [place] by a total of 18 providers. I will not be able to write her for any additional opiates as I do have serious concerns about opioid diversion. PRESCRIBED her Tegretol for her facial pain to keep follow-up appointment with primary care. Impression Primary Impression: Facial pain Disposition: 01 HOME, SELF-CARE Condition: Stable Departure-Patient Inst. Decision time for Depature: 12:20 Referrals: BHUMI LOMELI MD (PCP/Family) Primary Care Physician Patient Instructions: General (DC) Add. Discharge Instructions: 1. Follow-up with Dr. Lomeli. Return to ER for any concerns. Start the new medication every 12 hours called Tegretol En Carbamazepine (Tegretol Xr) 100 Mg Tab 100 MG PO BID, #14 TAB Prov: RAISA ARROYO APRN 06/20/18 RAISA ARROYO APRN Jun 20, 2018 12:22
[2018-06-20] MEDS ORDERED: NF-CARBAMX PO (12:23)
[2018-06-20 12:34] VITALS: BP 130/80
== END 2018-06-20 12:34 | disposition home or self-care (01) ==
LOC: EDUNIT# 12:04 → ER 12:05
DX: R51 Headache (principal); I10 Essential (primary) hypertension; Z90.89 Acquired absence of other organs; Z77.22 Contact with and (suspected) exposure to environmental tobacco smoke (acute) (chronic); Z88.0 Allergy status to penicillin; Z88.1 Allergy status to other antibiotic agents; Z88.4 Allergy status to anesthetic agent; Z91.040 Latex allergy status; Z88.8 Allergy status to other drugs, medicaments and biological substances; Z79.52 Long term (current) use of systemic steroids; Z86.19 Personal history of other infectious and parasitic diseases
CPT/HCPCS: 99282